=== PATIENT | female | born 2000 | race African-American/Black ===

== ENCOUNTER 2025-07-17 19:18 | Emergency (ER) | payer SELFPAY ==
[~2025-07-17] VITALS: Ht 170.2 cm; Wt 109.0 kg
[2025-07-17 19:44] VITALS: O2SAT 98
[2025-07-17] MEDS: TETANUS, DIPHTHERIA, PERTUSSIS VAC/PF 0.5ML (>10YR OLD) IM ONE (20:20)
[2025-07-17] MEDS: LIDOCAINE HCL 1% 20ML VIAL INFIL ONE (20:39)
[2025-07-17 21:18] VITALS: BP 131/84; PULSE 79; RESP 18; TEMP 36.7; O2SAT 99
== END 2025-07-17 21:19 | disposition home or self-care (01) ==
LOC: ER 19:18
DX: S61.019A Laceration without foreign body of unspecified thumb without damage to nail, initial encounter (principal); X58.XXXA Exposure to other specified factors, initial encounter; Y93.89 Activity, other specified; Y92.89 Other specified places as the place of occurrence of the external cause; Y99.8 Other external cause status
CPT/HCPCS: 90715; 12002; 90471; 99283; J2003; Z7610